=== PATIENT | male | born 1975 | race Caucasian/White ===

== ENCOUNTER 2021-05-11 07:46 | Emergency (ER) | payer OTHER, BC ==
[2021-05-11 08:12] LABS: HEMOGLOBIN 14.5 gm/dl (14.0-17.5); RED BLOOD COUNT 3.84 M/UL (4.20-5.50)
[2021-05-11 08:39] LABS: BUN/CREATININE RATIO 11 (0-10)
== END 2021-05-11 11:40 | disposition home or self-care (01) ==
LOC: ER1 07:46
PROVIDERS: Emergency Medicine
DX: S13.4XXA Sprain of ligaments of cervical spine, initial encounter (principal); S20.214A Contusion of middle front wall of thorax, initial encounter; S30.1XXA Contusion of abdominal wall, initial encounter; F10.129 Alcohol abuse with intoxication, unspecified; Y90.9 Presence of alcohol in blood, level not specified; S06.0X9A Concussion with loss of consciousness of unspecified duration, initial encounter; V49.40XA Driver injured in collision with unspecified motor vehicles in traffic accident, initial encounter; Y92.410 Unspecified street and highway as the place of occurrence of the external cause; F17.200 Nicotine dependence, unspecified, uncomplicated
CPT/HCPCS: 70450; 71045; 71260; 72125; 80053; 80307; 83605; 85025; 85610; 85730; 86850; 86900; 86901; 99284; G0480; Q9967